=== PATIENT | female | born 1990 | race Caucasian/White ===

== ENCOUNTER 2017-08-02 14:08 | Emergency (ER) | payer OTHER ==
[~2017-08-02] VITALS: Ht 167.6 cm; Wt 89.8 kg
[2017-08-02 14:16] VITALS: BP 156/81
[2017-08-02 14:47] LABS: ABSOLUTE BASOPHIL COUNT 0 /CUMM (0.0-0.2); ABSOLUTE EOSINOPHIL COUNT 0.2 /CUMM (0.0-0.7); ABSOLUTE GRANULOCYTE CT 8.8 /CUMM (1.4-6.5); ABSOLUTE LYMPH COUNT 1.8 /CUMM (1.2-3.4); ABSOLUTE MONOCYTE COUNT 0.7 /CUMM (0.10-0.60); BASOPHIL % 0.3 % (0.0-2.0); EOSINOPHIL % 1.5 % (0-5); GRANULOCYTE % 76.1 % (42.2-75.2); HEMATOCRIT 43.1 % (37-47); MEAN CORPUSCULAR HGB 30.8 PG (27.0-31.0); MEAN CORPUSCULAR HGB CONC 33.4 G/DL (33.0-37.0); MEAN CORPUSCULAR VOLUME 92.3 FL (81.0-99.0); MEAN PLATELET VOLUME 8.5 FL (7.4-10.4); PLATELET COUNT 292 /CUMM (130-400); RBC DISTRIBUTION WIDTH 13.2 % (11.5-14.5); RED BLOOD CELL CT 4.68 /CUMM (4.20-5.40); WHITE BLOOD CELL COUNT 11.5 /CUMM (4.8-10.8)
--- NOTE | 2017-08-02 15:54 | CT SCAN REPORT ---
EXAMINATION: CT ABDOMEN AND PELVIS WITHOUT CONTRAST CLINICAL INFORMATION: Right lower quadrant pain. Clinical concern for appendicitis COMPARISON: None TECHNIQUE: Multidetector volumetric imaging was performed from the superior aspect of the liver through the pubic symphysis. Sagittal and coronal reformatted images were obtained on the technologist's workstation. DLP: 685 mGy-cm FINDINGS: LUNG BASES: No suspicious abnormality in the visualized lower chest LIVER, GALLBLADDER, AND BILIARY TREE: No suspicious abnormality in the liver. The gallbladder is not distended. No opaque calculus. No biliary dilation PANCREAS: No suspicious abnormality. SPLEEN: Within normal limits ADRENAL GLANDS: No suspicious abnormality KIDNEYS AND URETERS: There is no dilation of the urinary collecting system. No renal masses. No opaque urinary calculus. BLADDER: The bladder is nearly empty and not well evaluated. No large abnormality. GASTROINTESTINAL TRACT: There is no localized pericolonic fat stranding. The appendix is normal. There is no small bowel dilation. There is no suspicious abnormality the stomach ABDOMINAL WALL: No significant hernia is appreciated. LYMPH NODES: There are no measurably enlarged abdominal or pelvic lymph nodes. There is no significant free intraperitoneal fluid VASCULAR: There is no abdominal aortic aneurysm PELVIC VISCERA: The uterus appears within normal limits. No large adnexal mass or collection. The right ovary is not well evaluated. OSSEOUS STRUCTURES: No suspicious abnormality IMPRESSION: The appendix is normal. No etiology for right lower quadrant pain demonstrated The study is limited by the lack of contrast
[2017-08-02] MEDS ORDERED: DICYCLOMINE HCL10 M1 PO (16:10)
[2017-08-02] MEDS ORDERED: ZOFRAN ODT4 M1 SL (16:10)
--- NOTE | 2017-08-02 16:10 | ED GI/GU/ABDOMINAL COMPLAINT ---
History of Present Illness General Chief Complaint: Nausea, Vomiting, Diarrhea Stated Complaint: +NVD, W/ POSSIBLE BLD, RLQ PAIN RADIATING TO FLANK Source: patient Exam Limitations: no limitations Vital Signs & Intake/Output Vital Signs & Intake/Output Vital Signs Date Time Temp Pulse Resp B/P B/P Pulse O2 O2 Flow FiO2 Mean Ox Delivery Rate 08/02 1416 96.4 60 18 156/81 99 Room Air Room Air Allergies Coded Allergies: bee venom protein (honey bee) (THROAT CLOSES 08/29/16) diphenhydramine (From BENADRYL) (THROAT CLOSES 08/29/16) shellfish derived (THROAT CLOSES 08/29/16) Uncoded Allergies: MAPLE (RASH 08/29/16) Reconcile Medications Dicyclomine HCl 10 MG CAPSULE 1-2 CAP PO TID PAIN Ondansetron (Zofran Odt) 4 MG TAB.RAPDIS 1 TAB SL TID NAUSEA Triage Note: PT TO ED WITH C/O RIGHT LOWER ABD PAIN SINCE THIS MORNING, +N/V/D TODAY, CURRENTLY HAS MENSES "I HAVE ENDOMETREOSIS, AND THIS PAIN IS WORSE THAN THAT".DENIES PAIN WITH URINATION. Triage Nurses Notes Reviewed? yes ? n Is pt currently ? No Onset: Abrupt Duration: hour(s): (few) Quality/Severity: mild, moderate Location: right lower quadrant Activities at Onset: none HPI: 26-year-old female comes into emergency room complaints of sudden onset of right lower abdominal pain that began a few hours prior to arrival. Some associated nausea vomiting and diarrhea. Denies any fever. Denies any urinary symptoms. She has a history of endometriosis. Denies any abdominal surgeries. She comes in for further evaluation. Nothing seems to make the symptoms better or worse. (Skip Massey) Past History Travel History Traveled to [place] past 21 day No Medical History Any Pertinent Medical History? 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 No (Skip Massey) Review of Systems Review of Systems Constitutional: Reports: no symptoms. EENTM: Reports: no symptoms. Respiratory: Reports: no symptoms. Cardiovascular: Reports: no symptoms. GI: Reports: see HPI. Genitourinary: Reports: see HPI. Musculoskeletal: Reports: no symptoms. Skin: Reports: no symptoms. Neurological/Psychological: Reports: no symptoms. Hematologic/Endocrine: Reports: no symptoms. Immunologic/Allergic: Reports: no symptoms. All Other Systems: Reviewed and Negative (Skip Massey) Physical Exam Physical Exam General Appearance: well developed/nourished, alert, mild distress Head: atraumatic Eyes: Bilateral: normal appearance. Ears, Nose, Throat, Mouth: hearing grossly normal Neck: normal inspection Respiratory: normal breath sounds, no respiratory distress Cardiovascular: regular rate/rhythm Gastrointestinal: soft, tenderness (rlq), no pelvic pain, no gaurding, no rebound tenderness Back: normal inspection Extremities: normal range of motion Neurologic/Psych: awake, alert, oriented x 3 Skin: intact, normal color Core Measures ACS in differential dx? No Sepsis Present: No Sepsis Focused Exam Completed? No (Skip Massey) Progress Differential Diagnosis: appendicitis, diverticulitis, ectopic , ovarian cyst, ovarian torsion, SBO, UTI/pyelo Plan of Care: Orders Procedure Date/time Status URINE 08/02 1422 Complete URINALYSIS 08/02 1422 Complete LIPASE 08/02 1422 Complete COMPREHENSIVE METABOLIC PANEL 08/02 1422 Complete CBC WITHOUT DIFFERENTIAL 08/02 1422 Complete Laboratory Tests 08/02/17 1436: Anion Gap 10, Estimated GFR > 60, BUN/Creatinine Ratio 14.3, Glucose 96, Calcium 9.3, Total Bilirubin 0.3, AST 18, ALT 20, Alkaline Phosphatase 66, Total Protein 7.2, Albumin 4.3, Globulin 2.9, Albumin/Globulin Ratio 1.5, Lipase 61, CBC w Diff NO MAN DIFF REQ, RBC 4.68, MCV 92.3, MCH 30.8, MCHC 33.4, RDW 13.2, MPV 8.5 , Gran % 76.1 H, Lymphocytes % 16.0 L, Monocytes % 6.1, Eosinophils % 1.5, Basophils % 0.3, Absolute Granulocytes 8.8 H, Absolute Lymphocytes 1.8, Absolute Monocytes 0.7 H, Absolute Eosinophils 0.2, Absolute Basophils 0 08/02/17 1431: Urinalysis LIGHT H, Urine Color YEL, Urine Clarity HAZY H, Urine pH 7.5, Ur Specific [place] 1.020, Urine Protein TRACE H, Urine Ketones NEG, Urine Nitrite NEG, Urine Bilirubin NEG, Urine Urobilinogen 1.0, Ur Leukocyte Esterase NEG, Ur Microscopic SEDIMENT EXAMINED, Urine RBC 25-50 H, Urine WBC 1-3 H, Ur Epithelial Cells MOD H, Urine Bacteria FEW H, Urine Hemoglobin LARGE H, Urine Glucose NEG, Urine Test NEGATIVE Diagnostic Imaging: Viewed by Me: CT Scan. Discussed w/RAD: CT Scan. Radiology Impression: PATIENT: LINA RICE PRESENT AGE: 26 PATIENT ACCOUNT NO: [id number] : 91 LOCATION: [facility] ORDERING PHYSICIAN: Skip MCMILLAN SERVICE DATE: 08/02/17 EXAM TYPE : CAT - CT ABD & PELVIS W/O IV CONTRAS EXAMINATION: CT ABDOMEN AND PELVIS WITHOUT CONTRAST CLINICAL INFORMATION: Right lower quadrant pain. Clinical concern for appendicitis COMPARISON: None TECHNIQUE: Multidetector volumetric imaging was performed from the superior aspect of the liver through the pubic symphysis. Sagittal and coronal reformatted images were obtained on the technologist's workstation. DLP: 685 mGy-cm FINDINGS: LUNG BASES: No suspicious abnormality in the visualized lower chest LIVER, GALLBLADDER, AND BILIARY TREE: No suspicious abnormality in the liver. The gallbladder is not distended. No opaque calculus. No biliary dilation PANCREAS: No suspicious abnormality. SPLEEN : Within normal limits ADRENAL GLANDS: No suspicious abnormality KIDNEYS AND URETERS: There is no dilation of the urinary collecting system. No renal masses. No opaque urinary calculus. BLADDER: The bladder is nearly empty and not well evaluated. No large abnormality. GASTROINTESTINAL TRACT: There is no localized pericolonic fat stranding. The appendix is normal. There is no small bowel dilation. There is no suspicious abnormality the stomach ABDOMINAL WALL: No significant hernia is appreciated. LYMPH NODES: There are no measurably enlarged abdominal or pelvic lymph nodes. There is no significant free intraperitoneal fluid VASCULAR: There is no abdominal aortic aneurysm PELVIC VISCERA: The uterus appears within normal limits. No large adnexal mass or collection. The right ovary is not well evaluated. OSSEOUS STRUCTURES: No suspicious abnormality IMPRESSION: The appendix is normal. No etiology for right lower quadrant pain demonstrated The study is limited by the lack of contrast DICTATED BY: Armand Jacobs MD DATE/TIME DICTATED:08/02/171542 UTILITY SERVICE WORKER:FATOUMATA DATE/TIME TRANSCRIBED:08/02/171542 CONFIDENTIAL, DO NOT COPY WITHOUT APPROPRIATE AUTHORIZATION. <Electronically signed in Other Vendor System> SIGNED BY: Armand Jaocbs MD 08/02/17 9230 Initial ED EKG: none (Ori MCMILLAN,Skip) Departure Departure Disposition: HOME OR SELF CARE Condition: Stable Clinical Impression Primary Impression: Abdominal pain Referrals: Patient Has No Primary Care Dr (PCP/Family) Additional Instructions: Take Bentyl and Zofran ODT as prescribed. Follow-up with your primary care doctor. Return if any concerns worsening symptoms. Clear liquid diet for the next 24 hours. Please go over all results of today's visit with your primary care doctor. Contact your primary care doctor to let them know you were here in the emergency room. There may be nonspecific findings which may not be related to your visit today here in the emergency room but may require further evaluation and chronic monitoring by your primary care doctor. If you had a laceration today the chance of foreign body always remains. You should follow-up with your primary care doctor for recheck in 3-5 days for a wound check. If you had an x-ray done there is a chance that a fracture could have been missed on initial read and you should follow-up with your primary care doctor for repeat x-rays if symptoms persist. If your blood pressure was elevated here in the emergency room please have rechecked by [facility] primary care doctor within the next 48. If you were prescribed a narcotic here in the emergency room or any type of controlled substances you're not allowed to drive while taking this medication or operate any type of heavy machinery. Narcotics can make you feel lightheaded dizziness nausea and can cause constipation. You may need to lemon picker a stool softener. Thank you for choosing [facility] emergency room. Please return to the emergency room immediately if you have any other concerns worsening of symptoms. Departure Forms: Customer Survey General Discharge Information Prescriptions: Current Visit Scripts Ondansetron (Zofran Odt) 1 TAB SL TID #10 TAB Dicyclomine HCl 1-2 CAP PO TID #30 CAP Comments 08/02/2017 5:10:36 PM Patient clinically looks well. Patient is no apparent distress. No evidence appendicitis. No suspicion for ovarian torsion. She clinically looks well. Shared decision making. Patient was offered ultrasound to evaluate the pelvis. Low suspicion for any type of ovarian pathology. Pain is higher up in abdomen. No pathology seen on CT scan. At this point patient will follow up with her primary care doctor. The viral nature. She declined any IV medication for nausea vomiting. Treated symptomatically with oral medications. Return if any other concerns. She understands and agrees a plan of care. Currently on menstrual period (Skip Massey) PA/REPLENISHMENT ANALYST Co-Sign Statement Statement: ED Attending supervision documentation- [] I saw and evaluated the patient. I have also reviewed all the pertinent lab results and diagnostic results. I agree with the findings and the plan of care as documented in the PA's/REPLENISHMENT ANALYST's documentation. [x] I have reviewed the ED Record and agree with the PA's/REPLENISHMENT ANALYST's documentation. [] Additions or exceptions (if any) to the PAs/REPLENISHMENT ANALYST's note and plan are summarized below: [] (Kole Christiansen DO)
== END 2017-08-02 16:25 ==
LOC: ERH 14:08
PROVIDERS: Physician Assistant Medical
DX: R10.31 Right lower quadrant pain (principal)
CPT/HCPCS: 74176; 81001; 81025